=== PATIENT | female | born 1975 | race Caucasian/White ===

== ENCOUNTER 2016-02-24 15:46 | Observation (INO) | payer OTHER ==
[~2016-02-24] VITALS: Ht 157.5 cm; Wt 78.2 kg
[~2016-02-24 15:46] MED LIST: Colace PO; DILAUDID2 MG PO; FEOSOL325 MG PO; Feosol PO; Inderal PO; LISINOPRIL10 MG PO; Motrin PO; PERCOCET 5/31 TABLET PO; PROPRANOLOL HCL20 MG PO; Percocet 5/325,Endoc PO; ZOFRAN4 MG PO; Zestril,Prinivil PO
[2016-02-24 16:17] LABS: HEMATOCRIT 42.4 % (36.0-46.0); MCH 28.7 PG (29.0-34.0); MCHC 34.2 G/DL (30.0-36.0); MEAN PLAT.VOLUME 9.6 uM^3 (9.5-12.4); PLATELET COUNT 239 K/uL (156-360); RBC DIS.WIDTH-CV 13.4 % (11.8-14.6); RBC DIS.WIDTH-SD 40.5 % (39-53); RED BLOOD COUNT 5.05 M/uL (3.80-5.20); WHITE BLOOD COUNT 7.5 K/uL (4.1-10.2)
[2016-02-24 16:26] LABS: CHLORIDE 107 mEq/L (99-109); POTASSIUM 3.9 mEq/L (3.7-5.4); SODIUM 139 mEq/L (136-147)
[2016-02-24 16:28] LABS: GLUCOSE 111 mg/dL (70-99)
[2016-02-24 16:29] LABS: ANION GAP 7 MEQ/L (2-14)
[2016-02-24 16:32] LABS: GFR ESTIMATE (CALCULATED) > 59 mL/min/
[2016-02-24 16:33] LABS: UREA NITROGEN (BUN) 10 mg/dL (9-23)
[2016-02-24 16:39] LABS: TROP-I INTERPRETATION NEGATIVE; TROPONIN-I < 0.01 ng/mL (0.0-0.30)
[2016-02-24 16:40] LABS: QUANTITATIVE HCG < 4.0 MIU/ML
[2016-02-24] MEDS ORDERED: MOTRIN800 MG PO (17:18)
[2016-02-24] MEDS ORDERED: VITAMIN D31000 UNI2 PO (17:18)
[2016-02-24 19:35] VITALS: BP 157/86
[2016-02-24 19:39] LABS: TOTAL CHOLESTEROL 181 mg/dL (Desirable<200); TRIGLYCERIDES 133 MG/DL (Normal: <150)
[2016-02-24 19:40] LABS: HDL CHOLESTEROL 29 MG/DL (Desirable>=50); LDL CHOLESTEROL 125 mg/dL (Desirable<100); NON-HDL CHOLESTEROL 152 mg/dL (Desirable<160)
[2016-02-24 21:23] LABS: TROP-I INTERPRETATION NEGATIVE; TROPONIN-I < 0.01 ng/mL (0.0-0.30)
[2016-02-24 21:31] LABS: Estimated Average Glucose 117 mg/dL (70-123); HEMOGLOBIN A1c (GLYCOHEMOGLOB) 5.7 % HGB (Below 5.7)
[2016-02-25 00:23] VITALS: BP 126/80
[2016-02-25 03:02] LABS: TROP-I INTERPRETATION NEGATIVE; TROPONIN-I < 0.01 ng/mL (0.0-0.30)
[2016-02-25 05:46] LABS: HEMATOCRIT 40.2 % (36.0-46.0); MCH 29.1 PG (29.0-34.0); MCHC 34.1 G/DL (30.0-36.0); MCV 85.5 FL (83-99); MEAN PLAT.VOLUME 9.6 uM^3 (9.5-12.4); PLATELET COUNT 203 K/uL (156-360); RBC DIS.WIDTH-CV 13.4 % (11.8-14.6); RBC DIS.WIDTH-SD 41.4 % (39-53); WHITE BLOOD COUNT 7.2 K/uL (4.1-10.2)
[2016-02-25 06:13] LABS: ALKALINE PHOSPHATASE 50 IU/L (3-129); ANION GAP 8 MEQ/L (2-14); CHLORIDE 107 MEQ/L (99-109); GFR ESTIMATE (CALCULATED) > 59 mL/min/; GLUCOSE 101 mg/dL (70-99); SAMPLE HEMOLYSIS CHECK 0; SAMPLE ICTERIC CHECK 0; SAMPLE LIPEMIA CHECK 0; SODIUM 140 MEQ/L (136-147); TOTAL BILIRUBIN 0.7 MG/DL (0.0-1.0); UREA NITROGEN (BUN) 9 mg/dL (9-23)
[2016-02-25 07:49] VITALS: BP 135/88
[2016-02-25 11:39] VITALS: BP 133/95
[2016-02-25 15:25] VITALS: BP 143/88
== END 2016-02-25 16:21 | disposition home or self-care (01) ==
LOC: EME 15:46 → EDOF 18:18 → 5WEST 19:25
PROVIDERS: Emergency Medicine; Hospitalist
DX: G43.909 Migraine, unspecified, not intractable, without status migrainosus (principal); I10 Essential (primary) hypertension; R07.9 Chest pain, unspecified; R94.31 Abnormal electrocardiogram [ECG] [EKG]; H53.129 Transient visual loss, unspecified eye; E21.3 Hyperparathyroidism, unspecified; R47.81 Slurred speech; Z79.82 Long term (current) use of aspirin; Z82.3 Family history of stroke; Z80.1 Family history of malignant neoplasm of trachea, bronchus and lung; Z80.0 Family history of malignant neoplasm of digestive organs
CPT/HCPCS: 70450; 70551; 71020; 80048; 80053; 80061; 83036; 84484; 84702; 85027; 93005; 93880; 99281; 99285; G0378; J0780; J1200; J7030

== ENCOUNTER → 2017-04-25 | Outpatient (CLI) | payer OTHER ==
[~2017-04-25] MED LIST changes: +MOTRIN800 MG PO; +VITAMIN D31000 UNI2 PO
== END | disposition home or self-care (01) ==
LOC: CDC 10:32
DX: R94.31 Abnormal electrocardiogram [ECG] [EKG] (principal); S83.231A Complex tear of medial meniscus, current injury, right knee, initial encounter
CPT/HCPCS: 93000

== ENCOUNTER 2017-06-04 13:24 | Day surgery (SDC) | payer OTHER ==
[~2017-06-04] VITALS: Ht 160 cm; Wt 79.0 kg
[2017-06-04 14:06] VITALS: BP 136/80
[2017-06-04 19:48] VITALS: BP 162/99
[2017-06-04 20:40] VITALS: BP 153/89
== END 2017-06-04 20:48 | disposition home or self-care (01) ==
LOC: SDC 13:24
DX: M17.11 Unilateral primary osteoarthritis, right knee (principal); M23.41 Loose body in knee, right knee; M23.241 Derangement of anterior horn of lateral meniscus due to old tear or injury, right knee; R26.89 Other abnormalities of gait and mobility; M25.561 Pain in right knee; M67.261 Synovial hypertrophy, not elsewhere classified, right lower leg; I10 Essential (primary) hypertension; E21.3 Hyperparathyroidism, unspecified; Z87.442 Personal history of urinary calculi; Z86.010 Personal history of colon polyps; Z90.49 Acquired absence of other specified parts of digestive tract; Z90.710 Acquired absence of both cervix and uterus
CPT/HCPCS: J0171; J1170; J1885; J2250; J2405; J2765; J3010